=== PATIENT | male | born 1970 | race Caucasian/White ===

== ENCOUNTER 2017-05-16 21:04 | Inpatient (IN) | payer OTHER ==
[~2017-05-16] VITALS: Ht 180.3 cm; Wt 80.4 kg
[2017-05-16] MEDS ORDERED: MORPHINE SULFATE 4 MG/ML, 1ML ONE ×2 (22:32→22:40)
[2017-05-16] MEDS ORDERED: ONDANSETRON 2MG/ML, 2ML ONE (22:33)
[2017-05-16] MEDS: MORPHINE SULFATE 4 MG/ML, 1ML IVPush PRN ×2 (22:42→23:00)
[2017-05-16] MEDS ORDERED: ONDANSETRON 2MG/ML, 2ML IVPush ONE (23:00)
[2017-05-16] MEDS ORDERED: SODIUM CHLORIDE FLUSH 10ML SYR IVF ONE (23:00)
[2017-05-16] MEDS ORDERED: SODIUM CHLORIDE 0.9% 1,000ML IVBOLUS ONE (23:00)
[2017-05-16 23:06] LABS: HEMOGLOBIN 15.5 g/dL (13.7-18.0); WHITE BLOOD COUNT 12.2 x10^3/uL (3.4-10)
[2017-05-16 23:16] LABS: ASPARTATE AMINO TRANSFERASE 18 U/L (15-37); BLOOD UREA NITROGEN 17 mg/dL (7-18)
[2017-05-17] MEDS ORDERED: OMNIPAQUE 350 MG/ML, 100ML BOTTLE ONE (00:01)
[2017-05-17] MEDS ORDERED: HYDROmorphone 2 MG/ML, 1ML ONE ×4 (00:22→12:43)
[2017-05-17 01:04] LABS: PATH.CAST-FLAG NOT PRESENT; SPERM-FLAG NOT PRESENT; SRC-FLAG NOT PRESENT; XTAL-FLAG NOT PRESENT; YLC-FLAG NOT PRESENT
[2017-05-17] MEDS ORDERED: SODIUM CHLORIDE 0.9% 1,000 ML IV ONE (01:38)
[2017-05-17] MEDS ORDERED: HYDROmorphone 1 MG/ML, 1ML IVPush PRN (02:00)
[2017-05-17] MEDS ORDERED: ONDANSETRON 2MG/ML, 2ML IVPush PRN (02:00)
[2017-05-17] MEDS: HYDROmorphone 1 MG/ML, 1ML IVPush PRN ×2 (02:17→04:48)
[2017-05-17] MEDS ORDERED: ACETAMINOPHEN 325 MG TABLET PO PRN (03:00)
[2017-05-17] MEDS ORDERED: OXYcodone IR 5MG TABLET ONE (04:11)
[2017-05-17] MEDS: OXYcodone IR 5MG TABLET PO PRN ×4 (04:17→20:23)
[2017-05-17] MEDS: HYDROmorphone 2 MG/ML, 1ML IVPush PRN ×2 (07:24→12:49)
[2017-05-17] MEDS: LACTULOSE 10 GM/15 ML UDC PO SCH ×2 (09:00→20:13)
[2017-05-17] MEDS: LACTATED RINGERS 1,000 ML IV SCH ×3 (11:00→20:14)
[2017-05-17] MEDS ORDERED: OMNIPAQUE 350 MG/ML, 75ML BOTTLE ONE (12:49)
[2017-05-17 13:18] VITALS: BP 121/77
[2017-05-17] MEDS ORDERED: GADOBUTROL 10 MMOL/10 ML VIAL ONE (13:23)
[2017-05-17 20:09] VITALS: BP 113/69
[2017-05-18 00:38] VITALS: BP 110/66
[2017-05-18] MEDS: OXYcodone IR 5MG TABLET PO PRN ×4 (00:41→15:04)
[2017-05-18] MEDS: HYDROmorphone 2 MG/ML, 1ML IVPush PRN ×3 (01:41→08:47)
[2017-05-18] MEDS: ONDANSETRON 2MG/ML, 2ML IVPush PRN ×2 (01:46→09:24)
[2017-05-18] MEDS: LACTATED RINGERS 1,000 ML IV SCH ×2 (03:38→10:43)
[2017-05-18 07:52] VITALS: BP 130/81
[2017-05-18] MEDS ORDERED: KETOROLAC 30 MG/1 ML IVPush SCH ×2 (09:30→15:30)
[2017-05-18] MEDS: LACTULOSE 10 GM/15 ML UDC PO SCH (10:43)
[2017-05-18] MEDS ORDERED: OxyconTIN ER 10 MG TAB.ER PO SCH (12:00)
[2017-05-18 15:32] VITALS: BP 125/83
[2017-05-18 16:34] LABS: CYTOLOGY BODY FLUID RECD INTO PATHOLOGY; CYTOLOGY BODY FLUID SOURCE OTHER - SEE COMMENT
[2017-05-18] MEDS ORDERED: OXYC5TAB3 PO (16:51)
[2017-05-18] MEDS ORDERED: OXYC10TA47 PO (16:51)
== END 2017-05-18 18:35 | disposition home or self-care (01) | DRG 700 ==
LOC: ED 23:59 → EDIP 05-17 01:39 → SUATTDRO 05-17 02:16 → 3NW 05-17 08:57
PROVIDERS: ADMIT Hospitalist; ATTEND Hospitalist
DX: N28.89 Other specified disorders of kidney and ureter (principal); N40.0 Benign prostatic hyperplasia without lower urinary tract symptoms; N13.30 Unspecified hydronephrosis; R31.0 Gross hematuria
CPT/HCPCS: 36415; 71260; 74177; 80053; 81001; 82088; 82530; 82626; 83690; 84244; 85025; 88112; 96361; 96374; 96375; 96376; A9585; J1170; J1885; J2405; Q9967; C8902; J7030; J7120

== ENCOUNTER → 2017-05-22 | Outpatient (CLI) | payer OTHER ==
[~2017-05-22] MED LIST: OXYC10TA47 PO; OXYC5TAB3 PO
== END ==
LOC: RAD 07:38
PROVIDERS: ATTEND Urology
DX: Z02.9 Encounter for administrative examinations, unspecified (principal)

== ENCOUNTER 2017-06-17 06:04 | Inpatient (IN) | payer OTHER ==
[2017-06-09 09:28] VITALS: BP 130/78
[~2017-06-17] VITALS: Ht 180.3 cm; Wt 81.1 kg
[~2017-06-17 06:04] MED LIST changes: +NONE PER PT
[2017-06-17] MEDS ORDERED: BUPIVACAINE/PF 0.25% ONE (06:43)
[2017-06-17] MEDS ORDERED: INDIGO CARMINE 0.8%, 5ML ONE (06:43)
[2017-06-17] MEDS ORDERED: EPINEPHRINE 1 MG/ML, 1ML ONE (06:43)
[2017-06-17] MEDS ORDERED: LACTATED RINGERS 1,000 ML IV SCH (06:47)
[2017-06-17] MEDS ORDERED: LIDOCAINE 1%, 2ML SQ PRN (07:00)
[2017-06-17] MEDS ORDERED: PROPOFOL 10 MG/ML, 20ML ONE (07:48)
[2017-06-17] MEDS ORDERED: DEXAMETHASONE 4 MG/ML, 1ML ONE (07:48)
[2017-06-17] MEDS ORDERED: CEFAZOLIN 1,000 MG ONE (07:48)
[2017-06-17] MEDS ORDERED: MIDAZOLAM 1 MG/ML, 2ML ONE (07:48)
[2017-06-17] MEDS ORDERED: FENTANYL PF 250 MCG/5ML ONE (07:48)
[2017-06-17] MEDS ORDERED: GLYCOPYRROLATE 0.2MG/1ML, 5ML ONE (07:48)
[2017-06-17] MEDS ORDERED: ONDANSETRON 2MG/ML, 2ML ONE ×2 (07:48→11:02)
[2017-06-17] MEDS ORDERED: SUCCINYLCHOLINE 20 MG/ML, 10ML ONE (07:48)
[2017-06-17] MEDS ORDERED: NEOSTIGMINE 1 MG/ML, 10ML ONE (07:48)
[2017-06-17] MEDS ORDERED: ROCURONIUM 10 MG/ML,10ML ONE (07:48)
[2017-06-17] MEDS ORDERED: OXYcodone 5 MG/5 ML ORAL.SOL UDC PO PRN (08:30)
[2017-06-17] MEDS ORDERED: ACETAMINOPHEN 325 MG TABLET PO PRN ×2 (08:30→11:00)
[2017-06-17] MEDS ORDERED: HYDROmorphone 1 MG/ML, 1ML IV PRN (08:30)
[2017-06-17] MEDS ORDERED: LABETALOL 5MG/ML, 20ML IV PRN (08:30)
[2017-06-17] MEDS ORDERED: ONDANSETRON 2MG/ML, 2ML IVPush PRN ×2 (08:30→11:00)
[2017-06-17] MEDS ORDERED: FENTANYL PF 100 MCG/2ML IV PRN (08:30)
[2017-06-17] MEDS ORDERED: hydrALAzine 20 MG/ML, 1ML IV PRN ×2 (08:30→11:00)
[2017-06-17] MEDS ORDERED: METOCLOPRAMIDE 5 MG/ML, 2ML IV PRN ×2 (08:30→11:00)
[2017-06-17] MEDS ORDERED: HYDROmorphone 2 MG/ML, 1ML ONE ×2 (10:59→12:47)
[2017-06-17] MEDS ORDERED: FENTANYL PF 100 MCG/2ML ONE (10:59)
[2017-06-17] MEDS: FENTANYL PF 100 MCG/2ML IV PRN ×2 (11:01→11:14)
[2017-06-17] MEDS ORDERED: MEPERIDINE/PF 50 MG/ML ONE (11:02)
[2017-06-17] MEDS: MEPERIDINE/PF 25MG/0.5ML IVPush PRN ×2 (11:07→11:25)
[2017-06-17] MEDS: HYDROmorphone 1 MG/ML, 1ML IV PRN ×5 (11:16→12:50)
[2017-06-17] MEDS ORDERED: ACETAMINOPHEN 500 MG TABLET PO ONE (11:30)
[2017-06-17] MEDS ORDERED: ACETAMINOPHEN 650 MG/20.3 ML UDC ONE (11:30)
[2017-06-17] MEDS ORDERED: OXYcodone 5 MG/5 ML ORAL.SOL UDC ONE ×2 (11:30→12:23)
[2017-06-17] MEDS: OXYcodone 5 MG/5 ML ORAL.SOL UDC PO PRN ×4 (11:36→21:21)
[2017-06-17] MEDS ORDERED: hydrALAzine 20 MG/ML, 1ML ONE (11:54)
[2017-06-17] MEDS ORDERED: LABETALOL 5MG/ML, 20ML ONE (12:26)
[2017-06-17] MEDS: LABETALOL 5MG/ML, 20ML IV PRN ×2 (12:27→12:44)
[2017-06-17] MEDS ORDERED: morphine SULFATE 10 MG/ML, 1ML IV PRN ×2 (14:00→16:00)
[2017-06-17] MEDS ORDERED: PROMETHAZINE 25 MG/ML, 1ML IM PRN (14:00)
[2017-06-17 14:37] VITALS: BP 150/90
[2017-06-17] MEDS: BACITRACIN OINT 500U/GM, 15 GM TP SCH ×2 (16:00→21:00)
[2017-06-17] MEDS: ONDANSETRON 2MG/ML, 2ML IV PRN ×2 (16:27→22:56)
[2017-06-17] MEDS: LACTATED RINGERS 1,000 ML IV SCH ×2 (17:00→22:56)
[2017-06-17] MEDS: ACETAMINOPHEN 500 MG TABLET PO SCH ×2 (17:54→19:19)
[2017-06-17] MEDS: HYDROmorphone 2 MG/ML, 1ML IVPush PRN ×2 (18:30→22:57)
[2017-06-17 19:21] VITALS: BP 158/83
[2017-06-17] MEDS: DOCUSATE 100 MG CAPSULE PO SCH (21:21)
[2017-06-17 23:08] VITALS: BP 137/86
[2017-06-18] MEDS: BACITRACIN OINT 500U/GM, 15 GM TP SCH ×3 (00:58→21:00)
[2017-06-18] MEDS: ACETAMINOPHEN 500 MG TABLET PO SCH ×4 (00:58→20:33)
[2017-06-18 02:42] VITALS: BP 134/83
[2017-06-18] MEDS: HYDROmorphone 2 MG/ML, 1ML IVPush PRN ×8 (02:48→23:09)
[2017-06-18 06:20] LABS: ANION GAP 7 mmol/L (5-15); CALCIUM 8.3 mg/dL (8.5-10.1); CHLORIDE 102 mmol/L (98-107)
[2017-06-18 06:21] LABS: CREATININE 1.29 mg/dL (0.7-1.3)
[2017-06-18] MEDS: ONDANSETRON 2MG/ML, 2ML IV PRN (06:39)
[2017-06-18 06:59] VITALS: BP 119/74
[2017-06-18] MEDS: DOCUSATE 100 MG CAPSULE PO SCH ×2 (07:47→20:34)
[2017-06-18 13:24] VITALS: BP 151/87
[2017-06-18] MEDS: LACTATED RINGERS 1,000 ML IV SCH (17:15)
[2017-06-18 19:40] VITALS: BP 129/83
[2017-06-19] MEDS: ACETAMINOPHEN 500 MG TABLET PO SCH ×2 (03:32→09:16)
[2017-06-19 03:34] VITALS: BP 150/89
[2017-06-19] MEDS: HYDROmorphone 2 MG/ML, 1ML IVPush PRN ×3 (03:40→09:36)
[2017-06-19 05:26] LABS: ANION GAP 6 mmol/L (5-15); CALCIUM 8.5 mg/dL (8.5-10.1); CHLORIDE 99 mmol/L (98-107); CREATININE 1.13 mg/dL (0.7-1.3)
[2017-06-19] MEDS: LACTATED RINGERS 1,000 ML IV SCH ×2 (05:55→19:37)
[2017-06-19 07:11] VITALS: BP 147/88
[2017-06-19] MEDS: DOCUSATE 100 MG CAPSULE PO SCH ×2 (09:16→22:15)
[2017-06-19] MEDS: BACITRACIN OINT 500U/GM, 15 GM TP SCH ×3 (09:16→22:15)
[2017-06-19] MEDS: OXYcodone 5 MG/5 ML ORAL.SOL UDC PO PRN ×5 (13:11→23:46)
[2017-06-19] MEDS: ONDANSETRON 2MG/ML, 2ML IV PRN ×2 (13:11→19:38)
[2017-06-19 14:15] VITALS: BP 157/92
[2017-06-19] MEDS ORDERED: ACETAMINOPHEN 500 MG TABLET ONE (17:39)
[2017-06-19] MEDS ORDERED: ACETAMINOPHEN 500 MG TABLET PO PRN (18:00)
[2017-06-19 19:40] VITALS: BP 140/90
[2017-06-20 01:58] VITALS: BP 149/91
[2017-06-20] MEDS: OXYcodone 5 MG/5 ML ORAL.SOL UDC PO PRN ×2 (03:51→09:01)
[2017-06-20] MEDS: LACTATED RINGERS 1,000 ML IV SCH (05:18)
[2017-06-20 08:52] VITALS: BP 143/84
[2017-06-20] MEDS: DOCUSATE 100 MG CAPSULE PO SCH (09:00)
[2017-06-20] MEDS: BACITRACIN OINT 500U/GM, 15 GM TP SCH (09:01)
[2017-06-20] MEDS ORDERED: DOCU-131 PO (10:11)
== END 2017-06-20 10:35 | disposition home or self-care (01) | DRG 658 ==
LOC: ORIP 06:04 → 4NOR 13:09 → DCLOUNGE 06-20 09:57
PROVIDERS: ADMIT Urology; ATTEND Urology
PROC: 0GB Endocrine System, Excision (ICD-10-PCS; 2017-06-17)
PROC: 0TT04ZZ Resection of Right Kidney, Percutaneous Endoscopic Approach (ICD-10-PCS; principal; 2017-06-17 07:30)
DX: C64.1 Malignant neoplasm of right kidney, except renal pelvis (principal); I10 Essential (primary) hypertension
CPT/HCPCS: 36415; 80048; 85014; 85018; 86850; 86900; 88307; C1729; J0171; J0690; J1100; J1170; J2175; J2250; J2405; J2704; J2710; J3010; J3490; C1760; J0330; J0360; J2270; J7120

== ENCOUNTER → 2017-11-13 | Outpatient (CLI) | payer OTHER ==
[~2017-11-13] MED LIST changes: +DOCU-131 PO; +OMNIPAQUE 350 MG/ML, 100ML BOTTLE ONE
== END | disposition home or self-care (01) ==
LOC: CFH 09:06
PROVIDERS: ATTEND Urology
DX: K57.30 Diverticulosis of large intestine without perforation or abscess without bleeding (principal); C64.9 Malignant neoplasm of unspecified kidney, except renal pelvis
CPT/HCPCS: 74177; 82565; Q9967

== ENCOUNTER → 2017-12-19 | Outpatient (CLI) | payer OTHER ==
[~2017-12-19] MED LIST changes: -OMNIPAQUE 350 MG/ML, 100ML BOTTLE ONE
[2017-12-19 12:44] LABS: BASOPHILS # (AUTO) 0.03 x10^3/uL (0-0.1); BASOPHILS % (AUTO) 1 % (0-1); EOSINOPHILS # (AUTO) 0.09 x10^3/uL (0-0.4); EOSINOPHILS % (AUTO) 2 % (1-7); LYMPHOCYTES # (AUTO) 1.54 x10^3/uL (1-3.4); LYMPHOCYTES % (AUTO) 28 % (22-44); MD NO; MEAN CORPUSCULAR HEMOGLOBIN 30.3 pg (27.5-34.5); MEAN CORPUSCULAR VOLUME 89.2 fL (81-97); MEAN PLATELET VOLUME 8.8 fL (7.4-10.4); MONOCYTES # (AUTO) 0.41 x10^3/uL (0.2-0.8); MONOCYTES % (AUTO) 8 % (2-9); NEUTROPHILS # (AUTO) 3.39 x10^3/uL (1.8-6.8); NEUTROPHILS % (AUTO) 62 % (42-75); PLATELET COUNT 240 x10^3/uL (130-400); RED BLOOD COUNT 4.66 x10^6/uL (4.38-5.82); RED CELL DISTRIBUTION WIDTH 13.1 % (9.4-14.8)
[2017-12-19 12:56] LABS: ALANINE AMINOTRANSFERASE 23 U/L (12-78); ALBUMIN 4.3 g/dL (3.4-5.0); ANION GAP 6 mmol/L (5-15); CALCIUM 9.4 mg/dL (8.5-10.1); CHLORIDE 104 mmol/L (98-107); CREATININE 1.32 mg/dL (0.7-1.3)
[2017-12-19 13:00] LABS: ALKALINE PHOSPHATASE 50 U/L (45-117); BILIRUBIN,TOTAL 0.4 mg/dL (0.2-1.0); TOTAL PROTEIN 7.7 g/dL (6.4-8.2)
== END | disposition home or self-care (01) ==
LOC: CFH 08:34
PROVIDERS: ATTEND Urology
DX: C64.9 Malignant neoplasm of unspecified kidney, except renal pelvis (principal)
CPT/HCPCS: 36415; 71046; 80053; 85025

== ENCOUNTER → 2018-06-26 | Outpatient (CLI) | payer OTHER ==
[~2018-06-26] MED LIST changes: +OMNIPAQUE 350 MG/ML, 100ML BOTTLE ONE
== END | disposition home or self-care (01) ==
LOC: CFH 11:37
PROVIDERS: ATTEND Urology
DX: K76.89 Other specified diseases of liver (principal); Z85.828 Personal history of other malignant neoplasm of skin; Z90.5 Acquired absence of kidney
CPT/HCPCS: 71260; 74160; 82565; Q9967

== ENCOUNTER → 2018-08-28 | Outpatient (CLI) | payer OTHER ==
[~2018-08-28] MED LIST changes: +GADOBUTROL 10 MMOL/10 ML VIAL ONE; -OMNIPAQUE 350 MG/ML, 100ML BOTTLE ONE
== END | disposition home or self-care (01) ==
LOC: CFH 09:18
PROVIDERS: ATTEND Urology
DX: K76.89 Other specified diseases of liver (principal); C64.9 Malignant neoplasm of unspecified kidney, except renal pelvis; Z90.5 Acquired absence of kidney
CPT/HCPCS: 74183; 82565; A9585

== ENCOUNTER → 2020-10-03 | Outpatient (CLI) | payer OTHER ==
[~2020-10-03] MED LIST changes: -GADOBUTROL 10 MMOL/10 ML VIAL ONE; +OMNIPAQUE 350 MG/ML, 100ML BOTTLE ONE; -OXYC5TAB3 PO; +OXYC5TAB98 PO
== END | disposition home or self-care (01) ==
LOC: CFH 09:24
PROVIDERS: ATTEND Family Medicine
DX: C64.9 Malignant neoplasm of unspecified kidney, except renal pelvis (principal)
CPT/HCPCS: 74160; 82565; Q9967